=== PATIENT | female | born 1990 | race Caucasian/White ===

== ENCOUNTER 2016-07-16 04:38 | Emergency (ER) | payer OTHER ==
[~2016-07-16] VITALS: Ht 162.6 cm; Wt 49.9 kg
--- NOTE | 2016-07-16 04:40 | NUR ---
PT PRESENTED TO THE ER WITH A C/O N/V MANAGER WOMEN. PT AMBULATED TO BED #2. PT WAS PLACED ON THE MONITOR AND CONTINUOUS PULSE OX. 18G IV STARTED IN LAC. PT'S PALOR IS PALE. PT IS DIAPHORETIC.
[2016-07-16] MEDS ORDERED: IV SET PRIMARY 1 EA INFUS.SET MC ONE (04:53)
[2016-07-16] MEDS ORDERED: IV NS 0.9% 1,000 ML ONE (04:53)
[2016-07-16] MEDS ORDERED: ONDANSETRON HCL/PF 4 MG/2 ML VIAL ONE ×2 (04:53→05:03)
[2016-07-16] MEDS ORDERED: ONDANSETRON HCL/PF 4 MG/2 ML VIAL IVP ONE (05:00)
[2016-07-16] MEDS ORDERED: IV NS 0.9% 1,000 ML BAG IV ONE (05:00)
[2016-07-16] MEDS ORDERED: MAG HYDROX/AL HYDROX/SIMETH 30 ML UDC ONE (05:14)
[2016-07-16] MEDS ORDERED: LORAZEPAM INJ 2 MG/ML VIAL ONE ×2 (05:22→05:34)
[2016-07-16] MEDS ORDERED: LORAZEPAM INJ 2 MG/ML VIAL IV ONE (05:30)
[2016-07-16] MEDS ORDERED: MAG HYDROX/AL HYDROX/SIMETH 30 ML UDC PO ONE (05:30)
[2016-07-16] MEDS ORDERED: ONDANSETRON HCL/PF 4 MG/2 ML VIAL IV ONE (05:30)
[2016-07-16] MEDS ORDERED: LIDOCAINE VISCOUS 2% UD 15 ML UDC MM ONE (05:30)
--- NOTE | 2016-07-16 05:30 | NUR ---
PT IS C/O FEELING SEVERE ABD PAIN AND NAUSEA. MEDICATION GIVEN ORDERED.
--- NOTE | 2016-07-16 05:35 | NUR ---
LAB CALLED FOR BLOOD DRAW.
--- NOTE | 2016-07-16 05:39 | NUR ---
PT REFUSED MEDICATION.
--- NOTE | 2016-07-16 05:39 | NUR ---
SHAGGER IS AT THE BEDSIDE.
[2016-07-16] MEDS: LORAZEPAM INJ 2 MG/ML VIAL IV ONE ×2 (05:40→05:46)
--- NOTE | 2016-07-16 05:44 | NUR ---
PT AGREES TO MEDICATION.
--- NOTE | 2016-07-16 05:44 | NUR ---
Diana martinez in [facility] - 07/16/16 at 0544 by LEVI PT AGREEDS TO MEDICATION.
[2016-07-16 05:58] LABS: BASOPHILS # (AUTO) 0.1 /CMM (0.0-0.2); BASOPHILS % (AUTO) 0.8 % (0.0-2.0); EOSINOPHILS # (AUTO) 0.1 /CMM (0.0-0.7); EOSINOPHILS % (AUTO) 0.7 % (0.0-6.0); HEMATOCRIT 41 % (33-45); HEMOGLOBIN 13.5 g/dL (11.5-14.8); LYMPHOCYTES # (AUTO) 1.6 /CMM (0.8-4.8); LYMPHOCYTES % (AUTO) 10.9 % (20.0-44.0); MEAN CORPUSCULAR HEMOGLOBIN 31 PG (26.0-33.0); MEAN CORPUSCULAR HGB CONC 33 g/dl (31.0-36.0); MEAN CORPUSCULAR VOLUME 94 fL (82-100); MONOCYTES # (AUTO) 0.4 /CMM (0.1-1.30); MONOCYTES % (AUTO) 2.9 % (2.0-12.0); NEUTROPHILS # (AUTO) 12.2 /CMM (1.8-8.9); NEUTROPHILS % (AUTO) 84.7 % (43.0-81.0); PLATELET COUNT (AUTO) 296 /CMM (150-450); RDW COEFFICIENT OF VARIATION 13.7 (11.5-15.0); RED BLOOD CELL COUNT(AUTO) 4.43 MIL/uL (4.0-5.2); WHITE BLOOD COUNT (AUTO) 14.4 K/uL (4.3-11.0)
[2016-07-16] MEDS ORDERED: HYDROMORPHONE 1 MG/1 ML DISP.SYRIN ONE (06:06)
--- NOTE | 2016-07-16 06:10 | NUR ---
PT WAS DRY HEAVING AND CRYING.
[2016-07-16 06:11] LABS: CALCIUM, SERUM 8.1 mg/dL (8.5-10.1); CREATININE 0.9 mg/dL (0.6-1.3); POTASSIUM 3.7 mmol/L (3.5-5.1)
--- NOTE | 2016-07-16 06:12 | NUR ---
PT WAS PLACED ON 2L O2 VIA NC.
--- NOTE | 2016-07-16 06:13 | NUR ---
PT REC'D PAIN MEDICATION ORDERED.
[2016-07-16 06:16] LABS: ALBUMIN 3.8 g/dL (3.4-5.0); BILIRUBIN,TOTAL 0.3 mg/dL (0.2-1.0); TOTAL PROTEIN, SERUM 6.7 g/dL (6.4-8.2)
--- NOTE | 2016-07-16 06:17 | NUR ---
PT APPEARS TO BE RESTING COMFORTABLY WITH NO S/S OF PAIN OR DISTRESS. PT'S IS AT THE BEDSIDE.
[2016-07-16] MEDS ORDERED: FLUO40CA8 PO (06:22)
[2016-07-16] MEDS ORDERED: LAMO100T2 PO (06:22)
[2016-07-16] MEDS ORDERED: ALPR0.5T PO (06:22)
[2016-07-16] MEDS ORDERED: QUET200T PO (06:22)
--- NOTE | 2016-07-16 06:22 | NUR ---
PT STATED THAT SHE FEELS MUCH BETTER. PT'S PALOR IS WNL. PT IS NON DIAPHORETIC. VSS.
[2016-07-16] MEDS ORDERED: HYDROMORPHONE 1 MG/1 ML DISP.SYRIN IV ONE (06:30)
--- NOTE | 2016-07-16 06:30 | NUR ---
DR. HARRIS IS AT THE BEDSIDE SPEAKING TO THE PT AND HER .
--- NOTE | 2016-07-16 07:06 | NUR ---
IV removed. Catheter intact and site benign. Pressure and 4x4 applied to site. No bleeding noted. Patient discharged to home in stable condition. Written and verbal after care instructions given. Patient verbalizes understanding of instruction AND RX. PT REC'D A COPY OF ALL LABS AND CT FINDINGS.
[2016-07-16 07:20] VITALS: BP 115/89
== END 2016-07-16 07:00 | disposition home or self-care (01) ==
LOC: ER 04:40
DX: R11.2 Nausea with vomiting, unspecified (principal); R10.13 Epigastric pain; F41.9 Anxiety disorder, unspecified; D72.829 Elevated white blood cell count, unspecified; K44.9 Diaphragmatic hernia without obstruction or gangrene; K59.00 Constipation, unspecified; Z90.49 Acquired absence of other specified parts of digestive tract
CPT/HCPCS: 36415; 74176; 80053; 83690; 84703; 85025; 96361; 96374; 96375; 99285; A4606; J1170; J2060 ×2; J2405 ×2; J7030; Z7610